=== PATIENT | male | born 1950 | race Caucasian/White ===

== ENCOUNTER 2025-07-31 11:43 | Emergency (ER) | payer OTHER, SELFPAY ==
[2025-07-31 11:45] VITALS: BP 158/81
[2025-07-31 12:18] VITALS: BMI 22.8
--- NOTE | 2025-07-31 12:32 | EDRN ---
Resident MD in room w/ pt.
[2025-07-31 13:35] VITALS: BP 150/84
--- NOTE | 2025-07-31 13:56 | ED.GENMED ---
ED Provider Triage
<Alvaro Obregon MD, Resident - Last Filed: 07/31/25 15:13>
-
Patient seen by provider in Triage?: Seen in Triage
History of Present Illness
<Alvaro Obregon MD, Resident - Last Filed: 07/31/25 15:13>
General
Chief Complaint: Skin Surface Trauma
Time Seen by Provider: 07/31/25 12:15
History of Present Illness
History of Present Illness:
Patient is a 74 year old male who was putting his shower door back on the hinges when it slipped and broke into multiple pieces. He then received cuts all over his body including the top of his head, back of his shoulder, bilaterally on both
lower extremities, bilaterally on both upper extremities. Most lacerations are superficial but the most serious laceration is on his left hand where the laceration is deep and involves structures like the tendon. No uncontrolled bleeding. No
numbness/ weakness in any of his extremities except for first digit of the left hand. He states that he cannot move the first digit on his left hand. No fever, chills, foreign body sensation. Not on blood thinners. Does not remember last tetanus
vaccination. Lives at home with his .
Past History
<Alvaro Obregon MD, Resident - Last Filed: 07/31/25 15:13>
Past History
ED Past Medical History: Other (Peterson's palsy 2013, chronic low back pain) and Other (Thyroidism)
Social History
Tobacco: Non-smoker
Alcohol: None
Personal:
Family History
Family History: Other (Father had an [place])
Review of Systems
<Alvaro Obregon MD, Resident - Last Filed: 07/31/25 15:13>
Review of Systems
All Other Systems: ROS reviewed and negative except as documented in HPI and ROS
Constitutional: Denies fever or chills
Respiratory: Denies cough
Cardiac: Reports no symptoms
ABD/GI: Reports no symptoms
: Reports no symptoms
Musculoskeletal: Reports no symptoms
Skin: Reports other (pain at the site of left hand laceration )
Psychiatric: Reports no symptoms
Phy Exam
<Alvaro Obregon MD, Resident - Last Filed: 07/31/25 15:13>
General Physical Exam
General Presentation: well appearing and no apparent distress
General Habitus: elderly
Cardiovascular Exam
Cardiovascular Exam: regular rate/rhythm, no edema, no gallop, no JVD, no murmur and normal peripheral pulses
Pulmonary Exam
Pulmonary Exam: lungs clear and no respiratory distress
Gastrointestinal Exam
Gastrointestinal Exam: normal bowel sounds, non tender, soft and non distended
Musculoskeletal Exam
Musculoskeletal Exam: neuro vasc intact and other (Decreased range of motion in first digit of the left hand. Rest all digits on b/l lower extremities and upper extremities have normal sensation, motor function, pulses, ROM)
Skin Exam
Skin Exam: other ( laceration of the dorsum of left hand approx 3 cm in length with depth involving the deep structures of hand like tendons which are visible. )
Psychiatric Exam
Psychiatric Exam: normal mood/affect
Course
<Alvaro Obregon MD, Resident - Last Filed: 07/31/25 15:13>
Orders/Labs/Results
Orders:
Orders
07/31/25 13:10
Tetanus/Diphth/Acelpertussis [Adacel] 0.5 ml IM .ONCE ONE
07/31/25 13:18
Hand, Left 3 View [CR Hand - Left Min 3 Views] Urgent
Comment:
Reason For Exam: laceration of tendon
07/31/25 14:34
Amoxicillin 875 mg/Clav 125 mg [Augmentin 875 mg/125 mg] 1 tablet .ROUTE .STK-MED ONE
07/31/25 14:56
Amoxicillin 875 mg/Clav 125 mg [Augmentin 875 mg/125 mg] 1 tablet PO NOW STA
07/31/25 20:00
Amoxicillin 875 mg/Clav 125 mg [Augmentin 875 mg/125 mg] 1 tablet PO Q12
Vital Signs
Initial and Last Documented VS:
Initial Vital Signs
Temp Pulse Resp BP Pulse Ox
98.4 F 88 18 158/81 97
07/31/25 11:45 07/31/25 11:45 07/31/25 11:45 07/31/25 11:45 07/31/25 11:45
Last Documented Vital Signs
Temp Pulse Resp BP Pulse Ox
98.4 F 76 16 150/84 97
07/31/25 11:45 07/31/25 13:35 07/31/25 13:35 07/31/25 13:35 07/31/25 14:09
<Alejandra Coyle MD - Last Filed: 07/31/25 14:37>
Orders/Labs/Results
Orders:
Orders
07/31/25 13:10
Tetanus/Diphth/Acelpertussis [Adacel] 0.5 ml IM .ONCE ONE
07/31/25 13:18
Hand, Left 3 View [CR Hand - Left Min 3 Views] Urgent
Comment:
Reason For Exam: laceration of tendon
07/31/25 14:34
Amoxicillin 875 mg/Clav 125 mg [Augmentin 875 mg/125 mg] 1 tablet .ROUTE .STK-MED ONE
07/31/25 14:56
Amoxicillin 875 mg/Clav 125 mg [Augmentin 875 mg/125 mg] 1 tablet PO NOW STA
07/31/25 20:00
Amoxicillin 875 mg/Clav 125 mg [Augmentin 875 mg/125 mg] 1 tablet PO Q12
Vital Signs
Initial and Last Documented VS:
Initial Vital Signs
Temp Pulse Resp BP Pulse Ox
98.4 F 88 18 158/81 97
07/31/25 11:45 07/31/25 11:45 07/31/25 11:45 07/31/25 11:45 07/31/25 11:45
Last Documented Vital Signs
Temp Pulse Resp BP Pulse Ox
98.4 F 76 16 150/84 97
07/31/25 11:45 07/31/25 13:35 07/31/25 13:35 07/31/25 13:35 07/31/25 14:09
<Alvaro Obregon MD, Resident - Last Filed: 07/31/25 15:13>
MDM/Problems Addressed
Differential Diagnosis Includes:
extensor tendon laceration
MDM/Problems Addressed:
74 year old with lacerations present all over body, the majority are superficial with the exception of 3 on the patients left hand. Will get xray of the left hand to evaluate furthur and check for glass, irrigate wound to remove debris, administer
Tdap vaccine, amoxicillin for antibiotic prophylaxies, and then a consultation for orthopedics.
<Alvaro Obregon MD, Resident - Last Filed: 07/31/25 15:13>
*Pulse Oximetry
SaO2: 97
Oxygen Mode of Delivery: Room air
<Alvaro Obregon MD, Resident - Last Filed: 07/31/25 15:13>
Update Note
Update Note:
- Xray showed no glass
- Placed sutures to deep laceration on left hand and then surgical glue on 2 superficial lacerations adjacent to deep laceration
- Dr. Vazquez (ortho) will see patient tomm in office to be evaluated
ED Attending Note
<Alvaro Obregon MD, Resident - Last Filed: 07/31/25 15:13>
-
Portions of this chart may have been created with voice recognition software.� Occasional wrong word or��sound alike� substitutions may have occurred due to the inherent limitations of voice recognition software.
<Alejandra Coyle MD - Last Filed: 07/31/25 14:37>
ED Attending Note
Patient seen and examined by attending physician: Yes
I performed a history and physical exam of patient and discussed management with resident, I reviewed resident's note and agree with documented findings and plan of care.: Yes
ED Attending Note:
This patient is a very pleasant 74-year-old male who was trying to get out of the shower when the door came off the track. He was trying to put it back on the truck when it slipped and broke. This caused multiple superficial abrasions on his body
including the top of his head, back of his shoulder, and extremities. He went to the urgent care, and was noted to have difficulty extending his left index finger which prompted his referral here. He does state that he is not up-to-date on his
tetanus. He does not take anticoagulation/platelet agents. He denies numbness or tingling. All his wounds have been cleaned. On exam, patient has inability to fully extend his left index finger there is a 5 cm linear laceration noted at the left
first MCP area with visible injured tendon noted. No obvious joint involvement. Wound was extended through full range of motion status post anesthesia. X-ray notes 'no acute osseous or articular abnormalities appreciated. Severe degenerative
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
No radiopaque foreign bodies appreciated.' Patient was advised that it is impossible to fully exclude the possibility of retained body such as glass although thought to be very unlikely given none seen on physical exam or x-ray, patient denies
foreign body sensation. Pictures of laceration sent to hand surgery and he was given an appointment for tomorrow for follow-up and expected surgical repair of injured tendon. Wound was cleaned here and loosely closed, patient will be started on
antibiotics and see hand tomorrow. Discussed with patient portance of follow-up and reasons return to the ER. Patient has several other superficial wounds that do not require specific closure
Discharge Plan
Departure
Patient with high blood pressure during this ER visit?: Yes
Condition: Good
Discharge Problem:
Extensor tendon laceration of hand with open wound
Instructions: Laceration Repair With Stitches (DC), Tendon Laceration, BLOOD PRESSURE
Prescriptions:
New
amoxicillin-pot clavulanate 875-125 mg tablet
1 tab PO BID Qty: 10 0RF
No Action
levothyroxine [Synthroid] 137 MCG tablet
137 mcg PO DAILY
cetirizine [Zyrtec] 5 MG tablet
5 mg PO DAILY
ibuprofen [Advil Liqui-Gel] 200 MG capsule
200 mg PO HS
ascorbic acid (vitamin C) [Vitamin C] 500 MG tablet
500 mg PO DAILY
omeprazole 20 MG capsule,delayed release(DR/EC)
20 mg PO DAILY
pseudoephedrine HCl [Sudogest] 30 MG tablet
60 mg PO DAILY
lovastatin 20 MG tablet
20 mg PO .DINNER
omega 2-wbg-vyq-fish oil [Fish Oil] 1 EACH capsule
1 ea PO DAILY
multivitamin with folic acid [Tab-A-Tip] 1 TABLET tablet
1 tab PO DAILY
meclizine 25 MG tablet
25 mg PO Q8HPRN PRN (Reason: nausea or vertigo) Qty: 21 0RF
Referrals:
Alan Varma MD [Family Provider, Internal Medicine]
Travis Vazquez MD [Active, Orthopedics] - Tomorrow
Activity Restrictions/Additional Instructions:
IS VERY IMPORTANT THAT YOU SEE THE HAND DOCTOR TOMORROW SCHEDULED. IF YOU DEVELOP FEVER, CHILLS, REDNESS, DRAINAGE, SWELLING, INCREASING OR NEW PAIN, OR OTHER WORRISOME SIGNS, PLEASE RETURN TO THE ER IMMEDIATELY!
Interventions
Interventions:
*Risk Screen - Suicide Last Done: 07/31/25 11:45
*General Assessment Last Done: 07/31/25 12:18
*Neglect/Abuse Screening Last Done: 07/31/25 11:45
*ED- Fall Risk Assessment Last Done: 07/31/25 12:18
*ED COVID-19 Vaccine History Last Done: 07/31/25 12:18
ED-Skin Assessment Last Done: 07/31/25 12:26
Discharge Date and Time
Print Language: SLOVENIAN
Consultation - Orthopedics
<Alvaro Obregon MD, Resident - Last Filed: 07/31/25 15:13>
Allergies / Home Medications
Allergy/AdvReac Type Severity Reaction Status Date / Time
oxycodone HCl (From Allergy Intermediate Rash Verified 07/31/25 11:45
OxyContin)
�Medication �Instructions �Recorded
ascorbic acid (vitamin C) 500 mg 500 mg PO DAILY 08/29/19
tablet (Vitamin C)
cetirizine 5 mg tablet (Zyrtec) 5 mg PO DAILY 08/29/19
ibuprofen 200 mg capsule (Advil 200 mg PO HS 08/29/19
Liqui-Gel)
levothyroxine 137 mcg tablet 137 mcg PO DAILY 08/29/19
(Synthroid)
lovastatin 20 mg tablet 20 mg PO .DINNER 08/29/19
meclizine 25 mg tablet 25 mg PO Q8HPRN PRN nausea or 08/29/19
vertigo #21 tabs
multivitamin with folic acid 400 1 tab PO DAILY 08/29/19
mcg tablet (Tab-A-Tip)
omega 6-iuw-awc-fish oil 300 1 ea PO DAILY 08/29/19
mg-1,000 mg capsule (Fish Oil)
omeprazole 20 mg capsule,delayed 20 mg PO DAILY 08/29/19
release
pseudoephedrine HCl 30 mg tablet 60 mg PO DAILY 08/29/19
(Sudogest)
amoxicillin 875 mg-potassium 1 tab PO BID #10 tabs 07/31/25
clavulanate 125 mg tablet
Vital Signs / Lab Results
Temp Pulse Resp BP Pulse Ox
98.4 F 76 16 150/84 97
07/31/25 11:45 07/31/25 13:35 07/31/25 13:35 07/31/25 13:35 07/31/25 14:09
<Alejandra Coyle MD - Last Filed: 07/31/25 14:37>
Allergies / Home Medications
Allergy/AdvReac Type Severity Reaction Status Date / Time
oxycodone HCl (From Allergy Intermediate Rash Verified 07/31/25 11:45
OxyContin)
�Medication �Instructions �Recorded
ascorbic acid (vitamin C) 500 mg 500 mg PO DAILY 08/29/19
tablet (Vitamin C)
cetirizine 5 mg tablet (Zyrtec) 5 mg PO DAILY 08/29/19
ibuprofen 200 mg capsule (Advil 200 mg PO HS 08/29/19
Liqui-Gel)
levothyroxine 137 mcg tablet 137 mcg PO DAILY 08/29/19
(Synthroid)
lovastatin 20 mg tablet 20 mg PO .DINNER 08/29/19
meclizine 25 mg tablet 25 mg PO Q8HPRN PRN nausea or 08/29/19
vertigo #21 tabs
multivitamin with folic acid 400 1 tab PO DAILY 08/29/19
mcg tablet (Tab-A-Tip)
omega 2-nue-dlp-fish oil 300 1 ea PO DAILY 08/29/19
mg-1,000 mg capsule (Fish Oil)
omeprazole 20 mg capsule,delayed 20 mg PO DAILY 08/29/19
release
pseudoephedrine HCl 30 mg tablet 60 mg PO DAILY 08/29/19
(Sudogest)
amoxicillin 875 mg-potassium 1 tab PO BID #10 tabs 07/31/25
clavulanate 125 mg tablet
Vital Signs / Lab Results
Temp Pulse Resp BP Pulse Ox
98.4 F 76 16 150/84 97
07/31/25 11:45 07/31/25 13:35 07/31/25 13:35 07/31/25 13:35 07/31/25 14:09
[2025-07-31] MEDS: ADACEL 0.5 ML IM (14:00)
[2025-07-31] MEDS: AUGMENTIN 875 MG/125 MG 1 TABLET PO (14:57)
--- NOTE | 2025-07-31 15:05 | EDRN ---
Pt is awaiting wound check by Dr. Coyle at this time. This RN will dress wound so pt can go to [facility] at this time.
--- NOTE | 2025-07-31 15:30 | EDRN ---
Left hand sutured area was dressed w/ tegaderm then L index finger splinted i extension and area wrapped in kerlix. Pt has two cut fingers on R hand that were dressed w/ bandaids.
== END 2025-07-31 15:33 | disposition home or self-care (01) ==
LOC: EMR 11:43
PROVIDERS: EMERGENCY PHYSICIAN Emergency Medicine; FAMILY PHYSICIAN Internal Medicine
DX: S66.321A Laceration of extensor muscle, fascia and tendon of left index finger at wrist and hand level, initial encounter (principal); W25.XXXA Contact with sharp glass, initial encounter; Y93.89 Activity, other specified; Z23 Encounter for immunization
CPT/HCPCS: 12042; 90471; 99283; 73130; 90715